=== PATIENT | female | born 1985 | race Caucasian/White ===

== ENCOUNTER 2023-10-03 18:20 | Emergency (ER) | payer MEDICAID ==
[~2023-10-03] VITALS: Ht 162.6 cm; Wt 78.5 kg
[2023-10-03 18:32] VITALS: BP 121/81; TEMP 98.5; O2SAT 98
[2023-10-03] MEDS ORDERED: DIPH25CA83 PO (18:54)
[2023-10-03] MEDS ORDERED: PRED20TA PO (18:54)
[2023-10-03] MEDS ORDERED: FAMO20TA8 PO (18:54)
[2023-10-03] MEDS ORDERED: predniSONE 20 MG TABLET ONE (19:22)
[2023-10-03] MEDS ORDERED: FAMOTIDINE (20 MG) 20 MG TABLET ONE (19:23)
[2023-10-03] MEDS ORDERED: diphenhydrAMINE HCL 25 MG CAPSULE ONE (19:23)
[2023-10-03] MEDS: FAMOTIDINE (20 MG) 20 MG TABLET PO ONE (19:26)
[2023-10-03] MEDS: predniSONE 50 MG TABLET PO ONE (19:26)
[2023-10-03] MEDS: diphenhydrAMINE HCL 25 MG CAPSULE PO ONE (19:26)
== END 2023-10-03 23:23 | disposition home or self-care (01) ==
LOC: ER 18:38
DX: T78.40XA Allergy, unspecified, initial encounter (principal); X58.XXXA Exposure to other specified factors, initial encounter
CPT/HCPCS: 99284; Q0163; J7512